=== PATIENT | male | born 1990 | race Caucasian/White ===

== ENCOUNTER 2020-07-01 07:20 | Emergency (ER) | payer BC ==
[~2020-07-01] VITALS: Ht 187.9 cm; Wt 90.7 kg
[2020-07-01] MEDS ORDERED: FAMOTIDINE 20MG/2ML IV (PEPCID) IV STA (07:47)
[2020-07-01 07:53] LABS: BASOPHILS % (AUTO) 0 % (0-10); EOSINOPHILS # (AUTO) 0.2 10^3/uL (0.0-0.3); EOSINOPHILS % (AUTO) 4 % (0-10); HEMATOCRIT 45 % (40-54); HEMOGLOBIN 15.3 g/dL (13.3-17.7); LYMPHOCYTES # (AUTO) 1.7 10^3/uL (1.0-4.0); LYMPHOCYTES % (AUTO) 30 % (12-44); MEAN CORPUSCULAR HEMOGLOBIN 30 pg (25-34); MEAN CORPUSCULAR HGB CONC 34 g/dL (32-36); MEAN CORPUSCULAR VOLUME 89 fL (80-99); MEAN PLATELET VOLUME 10.2 fL (9.0-12.2); MONOCYTES # (AUTO) 0.6 10^3/uL (0.0-1.0); MONOCYTES % (AUTO) 11 % (0-12); NEUTROPHILS # (AUTO) 3.2 10^3/uL (1.8-7.8); NEUTROPHILS % (AUTO) 55 % (42-75); PLATELET COUNT 236 10^3/uL (130-400); WHITE BLOOD COUNT 5.8 10^3/uL (4.3-11.0)
--- NOTE | 2020-07-01 07:53 | ED Abdominal Pain ---
General Chief Complaint: Abdominal/GI Problems Stated Complaint: ABD PAIN Source of Information: Patient Exam Limitations: No Limitations History of Present Illness Date Seen by Provider: Jul 01, 2020 Time Seen by Provider: 07:24 Initial Comments The Patient presents to the ER by private conveyance from home where he was getting ready to do morning physical training. He has been having a couple weeks of near constant left upper quadrant abdominal discomfort which she describes as a pressure pain that he rates it as a 3 out of 10. Is causing nausea but no vomiting yet. He had a normal bowel movement earlier today although it was black. He did take some Pepto-Bismol yesterday in an attempt to sauce the pain which did not help much. He does not have black tarry stools prior to that. He did take some Tums this morning which did not help. He also remembers eating breakfast pizza and orange juice from [employer] about 6:00, 1-1/2 hours prior to arrival. His gallbladder is intact but he had his appendix out. No diarrhea. No fever chills or sick contacts. 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 No fevers or chills. No sore throat. Allergies and Home Medications Allergies Coded Allergies: No Known Drug Allergies (Unverified , 07/01/20) Home Medications Ciprofloxacin HCl 500 Mg Tablet, 500 MG PO BID Prescribed by: ROXIE DAVID on 07/01/20 1143 Metronidazole 500 Mg Tablet, 500 MG PO TID Prescribed by: ROXIE DAVID on 07/01/20 1143 Patient Home Medication List Home Medication List Reviewed: Yes Review of Systems Review of Systems Constitutional: No chills, No diaphoresis EENTM: No Blurred Vision, No Double Vision Respiratory: Denies Cough, Denies Shortness of Air Cardiovascular: Denies Chest Pain, Denies Lightheadedness Gastrointestinal: See HPI, Abdominal Pain; Denies Constipated, Denies Diarrhea; Nausea Genitourinary: Denies Burning, Denies Discharge Musculoskeletal: No back pain, No joint pain Psychiatric/Neurological: Denies Anxiety, Denies Depressed All Other Systems Reviewed Negative Unless Noted: Yes Past Cwvjsdg-Dhmnou-Noxosy Hx Patient Social History Alcohol Use: Denies Use Smoking Status: Never a Smoker Physical Exam Vital Signs Vital Signs - First Documented 07/01/20 08:28 Temp 36.4 Pulse 85 Resp 20 B/P (MAP) 146/94 (111) Pulse Ox 99 O2 Delivery Room Air Capillary Refill : Height/Weight/BMI Height: '" Weight: lbs. oz. kg; BMI Method: General Appearance: WD/WN, no apparent distress HEENT: PERRL/EOMI, normal ENT inspection, TMs normal, pharynx normal Neck: full range of motion, normal inspection Respiratory: lungs clear, normal breath sounds, no respiratory distress, no accessory muscle use Cardiovascular: normal peripheral pulses, regular rate, rhythm Gastrointestinal: normal bowel sounds, non tender, soft Extremities: normal inspection, normal capillary refill Neurologic/Psychiatric: alert, normal mood/affect, oriented x 3 Progress/Results/Core Measures Results/Orders Lab Results Laboratory Tests Test 07/01/20 07:30 07/01/20 07:45 Range/Units Urine Color OTHER H Urine Clarity CLEAR Urine pH 5.5 5-9 Urine Specific [place] <=1.005 1.016-1.022 Urine Protein NEGATIVE NEGATIVE Urine Glucose (UA) NEGATIVE NEGATIVE Urine Ketones NEGATIVE NEGATIVE Urine Nitrite NEGATIVE NEGATIVE Urine Bilirubin NEGATIVE NEGATIVE Urine Urobilinogen 0.2 < = 1.0 MG/DL Urine Leukocyte Esterase NEGATIVE NEGATIVE Urine RBC (Auto) NEGATIVE NEGATIVE Urine RBC NONE /HPF Urine WBC NONE /HPF Urine Crystals NONE /LPF Urine Bacteria NEGATIVE /HPF Urine Casts NONE /LPF Urine Mucus NEGATIVE /LPF Urine Culture Indicated NO White Blood Count 5.8 4.3-11.0 10^3/uL Red Blood Count 5.10 4.30-5.52 10^6/uL Hemoglobin 15.3 13.3-17.7 g/dL Hematocrit 45 40-54 % Mean Corpuscular Volume 89 80-99 fL Mean Corpuscular Hemoglobin 30 25-34 pg Mean Corpuscular Hemoglobin Concent 34 32-36 g/dL Red Cell Distribution Width 12.5 10.0-14.5 % Platelet Count 236 130-400 10^3/uL Mean Platelet Volume 10.2 9.0-12.2 fL Immature Granulocyte % (Auto) 0 % Neutrophils (%) (Auto) 55 42-75 % Lymphocytes (%) (Auto) 30 12-44 % Monocytes (%) (Auto) 11 0-12 % Eosinophils (%) (Auto) 4 0-10 % Basophils (%) (Auto) 0 0-10 % Neutrophils # (Auto) 3.2 1.8-7.8 10^3/uL Lymphocytes # (Auto) 1.7 1.0-4.0 10^3/uL Monocytes # (Auto) 0.6 0.0-1.0 10^3/uL Eosinophils # (Auto) 0.2 0.0-0.3 10^3/uL Basophils # (Auto) 0.0 0.0-0.1 10^3/uL Immature Granulocyte # (Auto) 0.0 0.0-0.1 10^3/uL Sodium Level 140 135-145 MMOL/L Potassium Level 3.6 3.6-5.0 MMOL/L Chloride Level 104 98-107 MMOL/L Carbon Dioxide Level 25 21-32 MMOL/L Anion Gap 11 5-14 MMOL/L Blood Urea Nitrogen 13 7-18 MG/DL Creatinine 1.11 0.60-1.30 MG/DL Estimat Glomerular Filtration Rate > 60 BUN/Creatinine Ratio 12 Glucose Level 82 70-105 MG/DL Calcium Level 9.7 8.5-10.1 MG/DL Corrected Calcium 8.5-10.1 MG/DL Total Bilirubin 0.7 0.1-1.0 MG/DL Aspartate Amino Transf (AST/SGOT) 22 5-34 U/L Alanine Aminotransferase (ALT/SGPT) 30 0-55 U/L Alkaline Phosphatase 68 40-136 U/L C-Reactive Protein High Sensitivity 0.07 0.00-0.50 MG/DL Total Protein 7.6 6.4-8.2 GM/DL Albumin 4.8 H 3.2-4.5 GM/DL Lipase 34 8-78 U/L Monoscreen NEGATIVE NEGATIVE My Orders [place] - ROXIE DAVID Ua Culture If Indicated (07/01/20 07:31) Cbc With Automated Diff (07/01/20 07:47) Comprehensive Metabolic Panel (07/01/20 07:47) Hs C Reactive Protein (07/01/20 07:47) Lipase (07/01/20 07:47) Lidocaine 2% Viscous 15 Ml (Xylocaine Vi (07/01/20 08:00) Antacid Suspension (Mylanta Suspension (07/01/20 08:00) Famotidine Injection (Pepcid Injection) (07/01/20 07:47) Ed Iv/Invasive Line Start (07/01/20 07:47) Ns Iv 500 Ml (Sodium Chloride 0.9%) (07/01/20 08:00) Ondansetron Injection (Zofran Injectio (07/01/20 08:00) Monotest (07/01/20 07:54) Ketorolac Injection (Toradol Injection) (07/01/20 09:00) Ct Abdomen/Pelvis W (07/01/20 09:43) Iohexol Injection (Omnipaque 350 Mg/Ml 1 (07/01/20 10:00) Received Contrast (Hold Metformin- Contr (07/01/20 10:00) Ns (Ivpb) (Sodium Chloride 0.9% Ivpb Bag (07/01/20 10:00) Medications Given in ED Current Medications Medications Dose Ordered Sig/Jabari Route Start Time Stop Time Status Last Admin Dose Admin Al Hydrox/Mg Hydrox/Simethicone 30 ml ONCE ONCE PO 07/01/20 08:00 07/01/20 08:01 DC 07/01/20 08:12 30 ML Iohexol 100 ml ONCE ONCE IV 07/01/20 10:00 07/01/20 10:01 DC 07/01/20 09:58 99 ML Ketorolac Tromethamine 30 mg ONCE ONCE IVP 07/01/20 09:00 07/01/20 09:01 DC 07/01/20 09:01 30 MG Lidocaine HCl 15 ml ONCE ONCE PO 07/01/20 08:00 07/01/20 08:01 DC 07/01/20 08:12 15 ML Ondansetron HCl 4 mg ONCE ONCE IVP 07/01/20 08:00 07/01/20 08:01 DC 07/01/20 07:59 4 MG Sodium Chloride 100 ml ONCE ONCE IV 07/01/20 10:00 07/01/20 10:01 DC 07/01/20 09:58 80 ML Sodium Chloride 500 ml @ 0 mls/hr Q0M ONCE IV 07/01/20 08:00 07/01/20 08:01 DC 07/01/20 08:04 500 MLS/HR Vital Signs/I&O 07/01/20 07/01/20 08:28 12:06 Temp 36.4 36.4 Pulse 85 80 Resp 20 20 B/P (MAP) 146/94 (111) 127/83 (111) Pulse Ox 99 99 O2 Delivery Room Air Room Air Progress Progress Note #1: Time: 07:52 Progress Note The WBC Differential showed no significant left shift or abnormal cells. Could include colitis, diverticulitis such as a Meckel's, gastritis PUD, gallbladder, pancreatitis or less likely kidney or ureteral drainage system. Plan to get some labs, urinalysis, lipase, CRP. We will give him a GI cocktail to see if we can eliminate the gastric and esophageal lining as a source of his pain. We will do a fecal occult blood test. Suspect the black stool is from the Pepto-Bismol he took yesterday. If it is positive however we can set him up with surgery for endoscopy. He has never had endoscopy yet. We will go ahead and do a mono screen even though he is had no fever or sore throat. Progress Note #2: Time: 08:56 Progress Note Patient received no benefit from GI cocktail. We are going to give him a chance for Toradol to help his pain. Using a clinically supported decision-making process with the patient he has elected to not pursue CT today unless his pain is not improved with the Toradol. He is encouraged strongly to follow-up with Dr. Mendez because his mother had an early onset of colorectal cancer and he has positive fecal occult blood test. Gastritis or PUD is less likely since the GI cocktail did not help. Diverticulitis Meckel's or other is still a possibility. His pain seems to get better after eating he says so gallbladder seems less likely. Colonoscopy is probably indicated. He does have a history of some minor bleeding hemorrhoids after surgery but nothing recently that he is aware of. No bright red blood described. There are rare repeat incidences of appendicitis after appendectomy so we should be cautious about completely removing it from our differential however with his normal vital signs and unremarkable laboratory examination this is an appropriate work-up at this time. Progress Note #3: Time: 11:39 Progress Note The patient's pain improved some with the Toradol but he is elected to go ahead and get a CT scan. CT scan reveals what looks like colitis. We talked to him about the possibility of inflammatory versus infectious. The patient recalls that about a week or so ago his had similar symptoms lasting only a day or 2 and they went away. This makes infectious slightly more likely so we are going to put him on antibiotics with a referral to Dr. Mendez if he is not seeing some improvement. Return precautions were given. Departure Impression Primary Impression: Colitis Disposition: 01 HOME, SELF-CARE Condition: Stable Departure-Patient Inst. Decision time for Depature: 11:41 Referrals: ANNETTE HIDALGO MD (PCP) Primary Care Physician BOB MENDEZ MD Patient Instructions: Colitis (DC) Add. Discharge Instructions: I believe you have an infection in your colon. If that is the case then some antibiotics should help clear it up. For the next week or going to do ciproflox acin and Flagyl. geophysical support specialist the probiotics [id number] and take 1 capsule twice a day for the next couple weeks until your symptoms resolve. If you not seeing improvement on antibiotics in the next 3 to 4 days then you should follow-up with Dr. Mendez. If you are feeling worse or having severe fever or nausea you should follow-up with the nearest ER. Tylenol 1000 mg every 8 hours as necessary for pain. Tums or antacids may also help reduce downstream pain such as omeprazole 1 capsule daily. Ciprofloxacin 1 capsule twice a day for the next week. Flagyl 1 tablet 3 times a day for the next week. All discharge instructions reviewed with patient and/or family. Voiced understanding. Scripts Ciprofloxacin HCl (Ciprofloxacin HCl) 500 Mg Tablet 500 MG PO BID for 7 Days, #14 TAB 0 Refills Prov: ROXIE DAVID 07/01/20 Metronidazole (Flagyl) 500 Mg Tablet 500 MG PO TID for 7 Days, #21 TAB 0 Refills Prov: ROXIE DAVID 07/01/20 Copy Copies To 1: BOB MENDEZ MD, TITUS J Jul 01, 2020 07:53
[2020-07-01 07:54] LABS: BILIRUBIN,URINE NEGATIVE (NEGATIVE); CLARITY,URINE CLEAR; GLUCOSE, URINE (UA) NEGATIVE (NEGATIVE); KETONES,URINE NEGATIVE (NEGATIVE); LEUKOCYTE ESTERASE ,URINE NEGATIVE (NEGATIVE); NITRITE,URINE NEGATIVE (NEGATIVE); PH,URINE 5.5 (5-9); PROTEIN,URINE NEGATIVE (NEGATIVE)
[2020-07-01] MEDS ORDERED: ONDANSETRON 4 MG/2 ML (SDV) Z0FRAN IVP ONE (08:00)
[2020-07-01] MEDS ORDERED: ANTACID SUSP 30 ML UDC (MYLANTA) PO ONE (08:00)
[2020-07-01] MEDS ORDERED: NS IV 500 ML 500 ML IV ONE (08:00)
[2020-07-01] MEDS ORDERED: LIDOCAINE 2% VISCOUS 15 ML UDC PO ONE (08:00)
[2020-07-01 08:03] LABS: ALBUMIN 4.8 GM/DL (3.2-4.5)
[2020-07-01 08:04] LABS: CHLORIDE 104 MMOL/L (98-107); POTASSIUM 3.6 MMOL/L (3.6-5.0); SODIUM 140 MMOL/L (135-145)
[2020-07-01 08:05] LABS: CALCIUM 9.7 MG/DL (8.5-10.1)
[2020-07-01 08:06] LABS: BACTERIA,URINE NEGATIVE /HPF; COLOR,URINE OTHER
[2020-07-01 08:06] LABS: GLUCOSE 82 MG/DL (70-105); TOTAL PROTEIN 7.6 GM/DL (6.4-8.2)
[2020-07-01 08:07] LABS: CARBON DIOXIDE 25 MMOL/L (21-32)
[2020-07-01 08:08] LABS: BILIRUBIN,TOTAL 0.7 MG/DL (0.1-1.0)
[2020-07-01 08:09] LABS: ALKALINE PHOSPHATASE 68 U/L (40-136)
[2020-07-01 08:10] LABS: CREATININE SERUM 1.11 MG/DL (0.60-1.30); GFR ESTIMATED > 60
[2020-07-01 08:11] LABS: BUN/CREATININE RATIO 12
[2020-07-01 08:13] LABS: ALANINE AMINOTRANSFERASE 30 U/L (0-55); LIPASE 34 U/L (8-78)
[2020-07-01] MEDS ORDERED: KETOROLAC 30 MG/ML VIAL IVP ONE (09:00)
[2020-07-01] MEDS ORDERED: IOHEXOL 350 MG/ML 100 ML (OMNIPAQUE 350) VIAL IV ONE (10:00)
[2020-07-01] MEDS ORDERED: HOLD METFORMIN - RECEIVED CONTRAST 20 ML VIAL IV SCH (10:00)
[2020-07-01] MEDS ORDERED: NS 100 ML (IVPB) BAG IV ONE (10:00)
--- NOTE | 2020-07-01 10:40 | Diagnostic Imaging Report ---
PROCEDURE: CT abdomen and pelvis with contrast. TECHNIQUE: Multiple contiguous axial images were obtained through the abdomen and pelvis after administration of intravenous contrast. Auto Exposure Controls were utilized during the CT exam to meet ALARA standards for radiation dose reduction. All CT scans use one or more of the following dose optimizing techniques: automated exposure control, MA and/or KvP adjustment based on patient size and exam type or iterative reconstruction. INDICATION: Left upper quadrant abdominal pain. CORRELATION STUDY: None. FINDINGS: LOWER THORAX: Clear. LIVER: Mild low attenuation liver likely reflecting some hepatic steatosis. No definitive focal lesion. GALLBLADDER: Present and unremarkable. No bile duct dilatation. SPLEEN: Unremarkable. Small splenule projecting anteriorly. PANCREAS: Unremarkable. ADRENAL GLANDS: Unremarkable. KIDNEYS: Normal enhancement. No obstruction. ABDOMINAL AORTA: Unremarkable, nonaneurysmal. GASTROINTESTINAL TRACT: Mild fluid distention of the stomach. No small bowel obstruction. Mild stool retention within the colon. Distal colon is relatively collapsed likely accounting for some colonic wall thickening. Colitis would be difficult to exclude. Prior apparent appendectomy. A few shotty particularly right lower quadrant mesenteric lymph nodes. URINARY BLADDER: Relatively decompressed. REPRODUCTIVE: Unremarkable. OSSEOUS STRUCTURES: No acute abnormality. OTHER: None. IMPRESSION: 1. Relatively decompressed distal colon with the presence of colonic wall thickening. Maybe owing to relative collapsed state, however possibility of a segmental colitis particularly at the most distal aspect near the level of the rectum is not excluded. Dictated by: Dictated on workstation # [id number]
[2020-07-01] MEDS ORDERED: CIPR500T5 PO (11:43)
[2020-07-01] MEDS ORDERED: METR500T PO (11:43)
[2020-07-01 12:06] VITALS: BP 127/83
== END 2020-07-01 12:08 | disposition home or self-care (01) ==
LOC: ER 07:23
DX: K52.9 Noninfective gastroenteritis and colitis, unspecified (principal)
CPT/HCPCS: 36415; 74177; 80053; 81000; 82274; 83690; 85025; 86141; 86308